=== PATIENT | female | born 1990 ===

== ENCOUNTER 2016-09-06 07:01 | Inpatient (IN) | payer OTHER ==
[2016-09-06] MEDS: Lactated Ringer's 1,000 ML IV ONE ×2 (07:30→08:42)
[2016-09-06] MEDS ORDERED: ePHEDrine 50 mg/ml Inj ONE (07:39)
[2016-09-06] MEDS ORDERED: Morphine 1 mg/ml preservative-free Inj(Duramorph) ONE (07:39)
[2016-09-06 07:43] VITALS: BMI 28.7
[2016-09-06] MEDS ORDERED: cefOXitin Sodium 1 GM in Sodium Chloride 0.9% 100 ML IVPB ONE (07:43)
[2016-09-06] MEDS ORDERED: Oxytocin 30 units/LR 500ML 30 U/500 ML BAG IV ONE ×2 (08:01→09:38)
[2016-09-06 08:03] VITALS: BP 118/78; PULSE 98; RESP 16; TEMP 98
[2016-09-06 08:17] LABS: BASO # 0.1 K/uL (0.0-0.2); BASO % 0.4 % (0.0-2.0); EOS # 0.1 K/uL (0.0-0.7); HEMATOCRIT 32.2 % (34.0-47.0); LYMPH # 2.2 K/uL (1.0-4.3); LYMPH % 17.3 % (20.0-40.0); MEAN CORPUSCULAR HEMOGLOBIN 27.8 pg (27.0-31.0); MEAN CORPUSCULAR HGB CONC 33.2 g/dL (33.0-37.0); MEAN PLATELET VOLUME 8.7 fl (7.2-11.7); MONO # 1.1 K/uL (0.0-0.8); MONO % 8.8 % (0.0-10.0); NEUT # 9.4 K/uL (1.8-7.0); NEUT % 72.5 % (50.0-75.0); RED CELL DISTRIBUTION WIDTH 13.6 % (11.5-14.5); WHITE BLOOD COUNT 12.9 K/uL (4.8-10.8)
[2016-09-06] MEDS ORDERED: Oxytocin 10 Units/ml Inj ONE (10:08)
--- NOTE | 2016-09-06 10:41 | OBDS ---
DELIVERY PERSONNEL Nurse Plow Mechanic Certified: na Delivery Doctor: Elle Helm MD Scrub Nurse: Cindy Can OBT Survey Research Manager: Irina Moreno RN/Raj Parra Anesthesiologist: Combination Machine Tender: na MATERNAL INFORMATION Delivery Anesthesia: Spinal Maternal Complications: None Provider Comments: delivery of live baby girl 9/9 clear fluid tubes and ovaries wnl ebl 750cc LABOR SUMMARY EDC: 09/12/2016 00:00 No. Babies in Womb: 1 Attempted: No Labor Anesthesia: None LABOR INFORMATION Reason for Induction: Not Applicable Oxytocin: N/A Group B Beta Strep: Negative Antibiotics # of Doses: Mefoxin 1 gm-pre op Antibiotics Time of Last Dose: 0825 Steroids Given: None Reason Steroids Not Administered: Not Applicable Other Reason Not Administered: na MEMBRANES Membranes Rupture Method: Artificial STAGES OF LABOR Stage 3 hrs: 0 Stage 3 min: 1 VAGINAL DELIVERY Episiotomy: None Laceration Extension: N/A Laceration Type: None Count Comment: correct CSECTION DELIVERY Secondary Indication: Repeat Elective CSection Incision: Lower Uterine Transverse BABY A INFORMATION Infant Delivery Date/Time: 09/06/2016 09:38 Method of Delivery: Born in Route : No : N/A Forceps: N/A Vacuum Extraction: N/A Shoulder Dystocia : No SHOULDER DYSTOCIA BABY A Infant Delivery Date/Time: 09/06/2016 09:38 PRESENTATION/POSITION BABY A Presentation: Cephalic Breech Presentation: N/A PLACENTA INFORMATION BABY A Placenta Delivery Time : 09/06/2016 09:39 Placenta Method of Delivery: Manual Removal Placenta Status: Delivered SCORES BABY A Heart Rate 1 min: >100 bpm Resp Effort 1 min: Good Cry Reflex Irritability 1 min: Cough or Sneeze or Pulls Away Muscle Tone 1 min: Active Motion Color 1 min: Body [place], Extremities Blue Resuscitation Effort 1 min: Tactile Stimulation SCORE 1 MIN: 9 Heart Rate 5 min: >100 bpm Resp Effort 5 min: Good Cry Reflex Irritability 5 min: Cough or Sneeze or Pulls Away Muscle Tone 5 min: Active Motion Color 5 min: Body [place], Extremities Blue Resuscitation Effort 5 min: Tactile Stimulation SCORE 5 MIN: 9 INFANT INFORMATION BABY A Gestational Age at Delivery: 39.2 Gestational Status: Term Infant Outcome : Liveborn Condition : Stable Infant Sex: Female IDENTIFICATION/MEDS BABY A ID Band Number: [id number] ID Band Location: Left Leg; Left Arm Vitamin K Given : Not Given Erythromycin Given: Not Given WEIGHT/LENGTH BABY A Birthweight (gms): 3000 Weight (lb): 6 Weight (oz): 10 Infant Length Inches: 19.00 Length cms: 48.3 CORD INFORMATION BABY A No. Cord Vessels: 3 Nuchal Cord : N/A Nuchal Cord Other: na True Knot: na Infant Cord pH Baby Arterial: na Cord pH Baby Venous: na Cord Blood Taken: Yes Suction: Mouth ASSESSMENT BABY A Complications: None Physical Findings at Delivery: Within Normal Limits Respirations: Appears Normal Mental Hygiene Consultant/ALS Called : No Care By: /Raj Whyte Transferred To: Nursery
[2016-09-06] MEDS ORDERED: Bisacodyl 5mg EC Tab PO PRN (10:43)
[2016-09-06] MEDS ORDERED: Oxycodone/Acetaminophen 5/325 mg Tab PO PRN (10:43)
[2016-09-06] MEDS ORDERED: DiphenhydrAMINE 50 mg/ml Inj IVP PRN (13:28)
[2016-09-06] MEDS: Oxycodone/Acetaminophen 5/325 mg Tab PO PRN (19:53)
[2016-09-07 08:03] LABS: HEMATOCRIT 28.9 % (34.0-47.0); MEAN CELL VOLUME 83.4 fl (81.0-99.0); MEAN CORPUSCULAR HGB CONC 33.5 g/dL (33.0-37.0); RED CELL DISTRIBUTION WIDTH 13.6 % (11.5-14.5); WHITE BLOOD COUNT 14.3 K/uL (4.8-10.8)
--- NOTE | 2016-09-07 13:30 | OBPPN ---
Datetime: 09/07/2016 13:25 PP Pain Prov: Within normal limits PP Nausea Prov: Denies PP Flatus Prov: Yes PP BM Prov: No PP Breasts Prov: Normal PP Heart Prov: Normal PP Lungs Prov: Normal PP Abdomen/Uterus Prov: Normal PP Lochia Prov: Normal PP Vulva/Perineum Prov: Normal PP CVA Tenderness Prov: Normal PP Extremities Prov: Normal PP C/S Incision Prov: Normal PP Progress Prov: Normal PP Impression Prov: Normal progression PP Plan Prov: Continue present management PP Progress Note Prov: stable pod1 continue present care IP PP Procedures: None Vital Signs Provider PP: Reviewed; Within Normal Limits
--- NOTE | 2016-09-07 15:47 | OP ---
PROCEDURE DATE: 09/07/2016 PREOPERATIVE DIAGNOSIS: Term , previous , for repeat . POSTOPERATIVE DIAGNOSES: Term , previous , for repeat . SURGEON: Eric Helm MD GAS PUMPER: Dr. Tarn. ANESTHESIA: Dr. Gardiner, spinal anesthesia. PROCEDURE: Repeat low transverse . FINDINGS: Term-size uterus, live baby girl, 9 and 9, clear fluid, cord with 3 vessels. Placen ta, tubes and ovaries within normal limits. ESTIMATED BLOOD LOSS: About 750 mL. DESCRIPTION OF PROCEDURE: With the patient in the supine position and spinal anesthesia. Dr. Joe turk and I prepared the patient for section. After this was done, a Pfannenstiel incision was made and taken down to the fascia in layers. Fascia was incised and extended bilaterally. Dr. Dylan bowles doing his side, I doing my side. After this was done, peritoneum was grasped, incised and extende d vertically. Upon entering the abdominopelvic cavity, paracolic gutters were packed with wet laps, pushing the bowel away from the operative field. Following this, a bladder flap was established and bladder was pushed away from the operative field and a low transverse incision made in the uterus cur ving upwards and extended bilaterally curving upwards. Baby was then removed without any complicatio n, given to director of capital giving, who resuscitated. After this was done, the placenta was removed intact. U terus was exteriorized, cleaned, and closed in 2 layers with 1 Vicryl, maintaining hemostasis. After this was done, the wet laps were removed from the paracolic gutters. The pelvic cavity was irrigate d until clean. The uterus was repositioned. Peritoneum was grasped and closed with 1 Vicryl, muscle s approximated with 1 Vicryl. Fascia was closed with 0 Vicryl running interlocking stitch starting a t each end and finishing in the midline. Dr. Tran doing his side and I am doing my side. After t his was done, the subcutaneous tissue was closed with 2-0 plain and the skin was closed in a subcutic ular fashion with 3-0 Prolene. The patient tolerated procedure well and was in satisfactory conditio n on the way to recovery room. Eric Kirill Helm MD cc: 22 TT: 09/07/2016 15:46:48 jn
[2016-09-07] MEDS: Simethicone 80 mg Chewtab PO PRN (16:39)
[2016-09-07] MEDS: Oxycodone/Acetaminophen 5/325 mg Tab PO PRN (17:48)
[2016-09-08] MEDS: Oxycodone/Acetaminophen 5/325 mg Tab PO PRN (06:27)
[2016-09-08] MEDS: Simethicone 80 mg Chewtab PO PRN ×2 (09:28→16:20)
--- NOTE | 2016-09-08 11:34 | OBPPN ---
Datetime: 09/08/2016 11:29 PP Pain Prov: Within normal limits PP Pain Prov comment: Denies SOB, chest pains or leg pains PP Nausea Prov: Denies PP Flatus Prov: Yes PP BM Prov: No PP Breasts Prov: Normal PP Lungs Prov: Normal PP Abdomen/Uterus Prov: Normal PP Lochia Prov: Normal PP Vulva/Perineum Prov: Normal PP CVA Tenderness Prov: Normal PP Extremities Prov: Normal PP C/S Incision Prov: Normal PP Progress Prov: Normal PP Comments Phys Exam Prov: Abd soft ND, fundus firm below the umb. NT, incision clean and dry no s uppt or discharge no active bleeding no sign of infection Ext no calf tenderness. PP Impression Prov: Normal progression PP Plan Prov: Continue present management PP Progress Note Prov: OOB and ambulation increase po fluids Continue PP care IP PP Procedures: None Vital Signs Provider PP: Reviewed
--- NOTE | 2016-09-09 08:33 | OBPPN ---
Datetime: 09/09/2016 08:31 PP Pain Prov: Within normal limits PP Nausea Prov: Denies PP Flatus Prov: Yes PP BM Prov: Yes PP Breasts Prov: Normal PP Heart Prov: Normal PP Lungs Prov: Normal PP Abdomen/Uterus Prov: Normal PP Lochia Prov: Normal PP Vulva/Perineum Prov: Normal PP CVA Tenderness Prov: Normal PP Extremities Prov: Normal PP C/S Incision Prov: Normal PP Progress Prov: Normal PP Impression Prov: Normal progression PP Plan Prov: Continue present management PP Progress Note Prov: stable pod 3 dc home today IP PP Procedures: None Vital Signs Provider PP: Reviewed; Within Normal Limits
--- NOTE | 2016-09-09 08:37 | OBDCSUM ---
Datetime: 09/09/2016 08:32 Discharged to, Provider: Home Follow up at, Provider: Disch Instr Activity: Bedrest; May be up to bathroom; May be up for meals; May Shower Disch Instr Diet: Regular Discharge Instructions, Provider: Specific instructions as noted Discharge Diagnosis, Provider: Term Delivered Discharge Time: 09/09/2016 08:33 Follow up in weeks, Provider: 1week in office Disch Referrals: None Disch Activity Restrictions: No exercising; No lifting; No driving; Minimize walking; Minimize stair -climbing; No sexual activity; Nothing in vagina - [place], tampons, douche Discharge Comment, Provider: radha home today rto 1week call office if any problems Contraception after Delivery: Undecided
[2016-09-09] MEDS ORDERED: Measles, Mumps, and Rubella 0.5 ML VIAL SC ONE (11:45)
== END 2016-09-09 15:00 | disposition home or self-care (01) | DRG 766 ==
LOC: H.EROB2 07:01 → H.L&D 07:45 → H.OB/GYN 17:42
PROVIDERS: ADMIT Specialist; ATTEND Specialist
PROC: 4A1HXCZ Monitoring of Products of Conception, Cardiac Rate, External Approach (ICD-10-PCS; 2016-09-06)
PROC: 10D00Z1 Extraction of Products of Conception, Low, Open Approach (ICD-10-PCS; principal; 2016-09-07)
DX: O34.211 Maternal care for low transverse scar from previous cesarean delivery (principal); Z37.0 Single live birth; Z3A.39 39 weeks gestation of pregnancy